=== PATIENT | female | born 1945 | race Caucasian/White ===

== ENCOUNTER 2022-05-21 18:57 | Emergency (ER) | payer MEDICAID, OTHER, SELFPAY ==
[~2022-05-21] VITALS: Ht 165.1 cm; Wt 80.0 kg
[2022-05-21 21:28] LABS: BASOPHILS % 0.6 % (0.0-2.0); EOSINOPHILS % 0.4 % (0.0-5.0); HEMATOCRIT. 37.2 % (36.0-48.0); HEMOGLOBIN. 12.6 g/dL (12.0-16.0); LYMPHOCYTES % 11.8 % (20.0-50.0); MEAN CORPUSCULAR HEMOGLOBIN 30.8 pg (28.0-32.0); MEAN CORPUSCULAR VOLUME 90.6 fL (81.0-99.0); MEAN PLATELET VOLUME 7.1 fl (7.4-10.4); MONOCYTES % 3.5 % (2.0-8.0); NEUTROPHILS % 83.7 % (40.0-76.0); PLATELET 284 x1000/uL (130-400); RED CELL DISTRIBUTION WIDTH 13.8 % (11.6-14.6)
[2022-05-21 21:45] LABS: CHLORIDE 108 mEq/L (98-107)
[2022-05-22 06:20] VITALS: BP 125/52
== END 2022-05-22 06:21 | disposition home or self-care (01) ==
LOC: ER 18:57
DX: F41.1 Generalized anxiety disorder (principal); F43.0 Acute stress reaction; R94.31 Abnormal electrocardiogram [ECG] [EKG]; I87.8 Other specified disorders of veins
CPT/HCPCS: 36415; 71045; 80053; 83880; 84484; 85025; 93005; 99285

== ENCOUNTER 2022-08-08 19:40 | Emergency (ER) | payer OTHER, MEDICAID ==
[~2022-08-08] VITALS: Ht 162.6 cm; Wt 73.0 kg
[2022-08-09 01:04] LABS: CLARITY URINE CLEAR (CLEAR); COLOR URINE YELLOW (YELLOW); KETONES URINE NEGATIVE (NEGATIVE); LEUKOCYTE ESTERASE URINE 1+ (NEGATIVE); NITRITE URINE NEGATIVE (NEGATIVE); OCCULT BLOOD URINE 1+ (NEGATIVE); PROTEIN URINE NEGATIVE (NEGATIVE); SPECIFIC GRAVITY URINE 1.008 (1.005-1.030); UROBILINOGEN URINE 0.2 E.U./dL (0.2-1.0)
[2022-08-09 01:23] LABS: BASOPHILS % 0.4 % (0.0-2.0); EOSINOPHILS % 0.6 % (0.0-5.0); LYMPHOCYTES % 23.1 % (20.0-50.0); MEAN CORPUSCULAR HEMOGLOBIN 31.4 pg (28.0-32.0); MEAN CORPUSCULAR VOLUME 89.3 fL (81.0-99.0); MEAN PLATELET VOLUME 6.7 fl (7.4-10.4); MONOCYTES % 5.6 % (2.0-8.0); NEUTROPHILS % 70.3 % (40.0-76.0); PLATELET 291 x1000/uL (130-400); RED BLOOD CELL COUNT 4.14 mill/uL (4.2-5.4); RED CELL DISTRIBUTION WIDTH 13.4 % (11.6-14.6)
[2022-08-09 01:26] LABS: CHLORIDE 99 mEq/L (98-107)
[2022-08-09] MEDS ORDERED: IBUPROFEN 600MG TABLET PO NR (02:15)
[2022-08-09 02:24] VITALS: BP 155/77
[2022-08-09] MEDS ORDERED: NITR-87 MT (04:13)
== END 2022-08-09 05:19 | disposition home or self-care (01) ==
LOC: ER 19:40
DX: N39.0 Urinary tract infection, site not specified (principal); K80.20 Calculus of gallbladder without cholecystitis without obstruction; K57.90 Diverticulosis of intestine, part unspecified, without perforation or abscess without bleeding; I10 Essential (primary) hypertension; E11.9 Type 2 diabetes mellitus without complications; Z79.899 Other long term (current) drug therapy
CPT/HCPCS: 36415; 74176; 80053; 81003; 85025; 99284

== ENCOUNTER 2022-11-17 10:28 | Emergency (ER) | payer OTHER, MEDICAID ==
[~2022-11-17] VITALS: Ht 167.6 cm; Wt 73.0 kg
[~2022-11-17 10:28] MED LIST: NITR-87 MT
[2022-11-17] MEDS ORDERED: MECLIZINE 25MG TABLET PO ONE (11:45)
[2022-11-17 12:05] LABS: CHLORIDE 104 mEq/L (98-107)
[2022-11-17 12:16] LABS: PROTHROMBIN TIME 10.7 sec (9.6-11.0)
[2022-11-17 12:19] LABS: BASOPHILS % 0.4 % (0.0-2.0); EOSINOPHILS % 0.6 % (0.0-5.0); HEMATOCRIT. 37.1 % (36.0-48.0); HEMOGLOBIN. 12.6 g/dL (12.0-16.0); LYMPHOCYTES % 16.3 % (20.0-50.0); MEAN CORPUSCULAR HEMOGLOBIN 30.8 pg (28.0-32.0); MEAN CORPUSCULAR VOLUME 90.4 fL (81.0-99.0); MEAN PLATELET VOLUME 7.4 fl (7.4-10.4); MONOCYTES % 4.1 % (2.0-8.0); NEUTROPHILS % 78.6 % (40.0-76.0); PLATELET 241 x1000/uL (130-400); RED CELL DISTRIBUTION WIDTH 13.4 % (11.6-14.6)
[2022-11-17] MEDS ORDERED: SODIUM CHLORIDE 0.9% 1,000 ML IV ONE (12:30)
[2022-11-17 15:46] LABS: CLARITY URINE CLEAR (CLEAR); COLOR URINE YELLOW (YELLOW); KETONES URINE NEGATIVE (NEGATIVE); LEUKOCYTE ESTERASE URINE NEGATIVE (NEGATIVE); NITRITE URINE NEGATIVE (NEGATIVE); OCCULT BLOOD URINE NEGATIVE (NEGATIVE); PH URINE 7.5 (4.5-8.0); PROTEIN URINE NEGATIVE (NEGATIVE); SPECIFIC GRAVITY URINE 1.005 (1.005-1.030); UROBILINOGEN URINE 0.2 E.U./dL (0.2-1.0)
[2022-11-17] MEDS ORDERED: MECL-159 MT (16:11)
[2022-11-17 17:00] VITALS: BP 147/71
[2022-11-17] MEDS ORDERED: IBUPROFEN 400MG TABLET PO ONE (17:00)
[2022-11-17] MEDS ORDERED: LIDO700A30 TP (18:49)
== END 2022-11-17 19:49 | disposition home or self-care (01) ==
LOC: ER 10:28
DX: R42 Dizziness and giddiness (principal); M54.42 Lumbago with sciatica, left side; I10 Essential (primary) hypertension; I45.6 Pre-excitation syndrome
CPT/HCPCS: 36415; 70450; 71045; 80053; 81003; 83880; 84484; 85025; 85610; 93005; 93971; 96360; 99285; J7030; J8597; Z7610

== ENCOUNTER 2024-05-17 23:45 | Emergency (ER) | payer OTHER, MEDICAID ==
[~2024-05-17] VITALS: Ht 162.6 cm; Wt 65.0 kg
[~2024-05-17 23:45] MED LIST changes: +AMLO5TAB88 PO; +LIDO700A30 TP; +LISI-186 PO; +MECL-299 MT
[2024-05-17 23:49] VITALS: O2SAT 97
[2024-05-18 00:20] LABS: BASOPHILS % 0.4 % (0.0-2.0); CHLORIDE 99 mEq/L (98-107); EOSINOPHILS % 1.1 % (0.0-5.0); HEMATOCRIT. 34.2 % (36.0-48.0); HEMOGLOBIN. 11.9 g/dL (12.0-16.0); LYMPHOCYTES % 28.9 % (20.0-50.0); MEAN CORPUSCULAR HEMOGLOBIN 31.9 pg (28.0-32.0); MEAN CORPUSCULAR HGB CONC 34.7 g/dL (31.0-37.0); MEAN CORPUSCULAR VOLUME 91.8 fL (81.0-99.0); MEAN PLATELET VOLUME 6.9 fl (7.4-10.4); MONOCYTES % 5.9 % (2.0-8.0); NEUTROPHILS % 63.7 % (40.0-76.0); PLATELET 273 x1000/uL (130-400); POTASSIUM 3.4 mEq/L (3.5-5.1); RED BLOOD CELL COUNT 3.73 mill/uL (4.2-5.4); RED CELL DISTRIBUTION WIDTH 13.5 % (11.6-14.6); SODIUM 129 mEq/L (136-145)
[2024-05-18 00:21] LABS: CARBON DIOXIDE 24 mEq/L (21-32)
[2024-05-18] MEDS: ACETAMINOPHEN 325MG TABLET PO ONE (00:24)
[2024-05-18 00:26] LABS: CREATININE 0.6 mg/dL (0.6-1.0)
[2024-05-18 00:27] LABS: GLUCOSE 155 mg/dL (70-105); UREA NITROGEN BLOOD 7 mg/dL (9-23)
[2024-05-18 00:38] LABS: TROPONIN I HIGH SENSITIVITY < 4 ng/L (3.0-34)
[2024-05-18] MEDS: POTASSIUM CHLORIDE 20MEQ/PACKET PO NR (02:41)
[2024-05-18] MEDS ORDERED: ACET-2708 MT (02:44)
[2024-05-18 03:02] VITALS: BP 153/76; PULSE 68; RESP 16; TEMP 36.72516; O2SAT 98
== END 2024-05-18 03:05 | disposition home or self-care (01) ==
LOC: ER 23:58
DX: I10 Essential (primary) hypertension (principal); G44.209 Tension-type headache, unspecified, not intractable; E87.6 Hypokalemia; E87.1 Hypo-osmolality and hyponatremia; E78.00 Pure hypercholesterolemia, unspecified; Z79.899 Other long term (current) drug therapy; Z88.0 Allergy status to penicillin
CPT/HCPCS: 36415; 71045; 80048; 83880; 84484; 85025; 93005; 99285

== ENCOUNTER 2025-02-28 08:10 | Emergency (ER) | payer OTHER, MEDICAID ==
[~2025-02-28] VITALS: Ht 165.1 cm; Wt 64.0 kg
[~2025-02-28 08:10] MED LIST changes: +ACET-2708 MT
[2025-02-28 08:14] VITALS: O2SAT 96
[2025-02-28 10:38] VITALS: BP 168/83; PULSE 81; RESP 16; TEMP 36.7; O2SAT 100
[2025-02-28] MEDS ORDERED: LORAZEPAM 0.5MG TABLET PO ONE (11:00)
[2025-02-28 11:23] LABS: BASOPHILS % 0.2 % (0.0-2.0); EOSINOPHILS % 0.1 % (0.0-5.0); HEMATOCRIT. 36.8 % (36.0-48.0); HEMOGLOBIN. 12.8 g/dL (12.0-16.0); LYMPHOCYTES % 8.2 % (20.0-50.0); MEAN CORPUSCULAR HEMOGLOBIN 31.4 pg (28.0-32.0); MEAN CORPUSCULAR HGB CONC 34.9 g/dL (31.0-37.0); MEAN PLATELET VOLUME 6.9 fl (7.4-10.4); MONOCYTES % 3.1 % (2.0-8.0); NEUTROPHILS % 88.4 % (40.0-76.0); PLATELET 282 x1000/uL (130-400); RED BLOOD CELL COUNT 4.09 mill/uL (4.2-5.4); RED CELL DISTRIBUTION WIDTH 13.6 % (11.6-14.6); WHITE BLOOD COUNT 8.9 x1000/uL (4.5-11.0)
[2025-02-28 11:32] LABS: CHLORIDE 89 mEq/L (98-107); POTASSIUM 3.8 mEq/L (3.5-5.1); SODIUM 125 mEq/L (136-145)
[2025-02-28 11:33] LABS: CALCIUM 8.8 mg/dL (8.7-10.4); CARBON DIOXIDE 27 mEq/L (21-32)
[2025-02-28 11:38] LABS: CREATININE 0.6 mg/dL (0.6-1.0); ETHANOL BLOOD < 10 mg/dL (<10); GLUCOSE 128 mg/dL (70-105); UREA NITROGEN BLOOD 10 mg/dL (9-23)
[2025-02-28 11:40] LABS: ACETAMINOPHEN < 2 ug/mL (10-30)
== END 2025-02-28 13:24 | disposition left against medical advice (07) ==
LOC: ER 08:10
DX: F41.0 Panic disorder [episodic paroxysmal anxiety] (principal); E78.00 Pure hypercholesterolemia, unspecified; F41.9 Anxiety disorder, unspecified; I10 Essential (primary) hypertension; Z79.899 Other long term (current) drug therapy; Z88.0 Allergy status to penicillin
CPT/HCPCS: 36415; 80048; 80307; 80320; 80329; 85025; 93005; 99284; G0480

== ENCOUNTER 2025-09-13 16:03 | Emergency (ER) | payer OTHER, MEDICAID ==
[~2025-09-13] VITALS: Ht 167.6 cm; Wt 80.0 kg
[2025-09-13 16:08] VITALS: BP 174/91; PULSE 84; RESP 18; TEMP 98.3; O2SAT 98
== END 2025-09-13 17:04 | disposition left against medical advice (07) ==
LOC: ER 16:03
DX: R20.2 Paresthesia of skin (principal); E78.00 Pure hypercholesterolemia, unspecified; I10 Essential (primary) hypertension; F41.9 Anxiety disorder, unspecified; Z88.0 Allergy status to penicillin; Z79.899 Other long term (current) drug therapy
CPT/HCPCS: 99283